=== PATIENT | male | born 1980 | race Two or more races ===

== ENCOUNTER 2018-12-07 19:50 | Emergency (ER) | payer SELFPAY ==
[~2018-12-07] VITALS: Ht 165.1 cm; Wt 85.1 kg
--- NOTE | 2018-12-07 20:47 | NUR ---
called pt to room from lobby
--- NOTE | 2018-12-07 21:06 | NUR ---
ASSUMED CARE OF PATIENT. PATIENT REPORTS HE HAS HAD A LOT OF STRESS WITH HIS JOB. FAMLIY AT BEDSIDE. PT DENIES SI, HI. CALL LIGHT IN PLACE. WILL CONTINUE TO MONITOR.
--- NOTE | 2018-12-07 21:28 | NUR ---
PT SEEN BY HERMINIO FLANNERY. NO ACUTE DISTRESS NOTED. WILL CONTINUE TO MONITOR.
--- NOTE | 2018-12-07 21:38 | NUR ---
THE HERBICIDE SPRAYER HAS GONE HOME FOR THE EVENING. PT REPORTS HE HAS AN APPOINTMENT TO TALK WITH SOMEONE ON THE
[2018-12-07 21:51] VITALS: BP 133/62
== END 2018-12-07 21:53 | disposition home or self-care (01) ==
LOC: ED 21:40
DX: F41.1 Generalized anxiety disorder (principal)
CPT/HCPCS: 99284